=== PATIENT | female | born 1950 | race Caucasian/White ===

== ENCOUNTER 2017-05-11 11:30 | Day surgery (SDC) | payer MEDICARE, MEDICAID ==
[~2017-05-11] VITALS: Ht 170.2 cm; Wt 73.6 kg
[~2017-05-11 11:30] MED LIST: ADV50250 IH; ALBU8HFA PO; AMIT-106 PO; APIX5TAB3 PO; DILT360C31 PO; DIPH1TAB PO; FLO0.4C PO; LISI-234 PO; MULT-1141 PO; PRAV10TA38 PO; SPIIN IH; TRAZ-143 PO
[2017-05-11] MEDS ORDERED: fentaNYL/PF 50MCG/1 ML 2ML syringe ONE (11:59)
[2017-05-11] MEDS ORDERED: LIDOcaine Viscous 15ml cup ONE (12:00)
[2017-05-11] MEDS ORDERED: MIDAZolam 1mg/ml 10ml vial ONE (12:00)
[2017-05-11 12:12] VITALS: BP 147/85
[2017-05-11] MEDS ORDERED: ALBU2.5V12 NEB (12:12)
[2017-05-11] MEDS ORDERED: NITR0.4T SL (12:14)
[2017-05-11] MEDS ORDERED: FERR-97 PO (12:22)
[2017-05-11] MEDS ORDERED: LEVO50TA66 PO (12:23)
[2017-05-11] MEDS ORDERED: TIOT4MIS3 PO (12:25)
[2017-05-11 13:26] VITALS: BP 115/69
[2017-05-11 13:36] VITALS: BP 129/69
[2017-05-11 13:46] VITALS: BP 130/60
[2017-05-11 13:56] VITALS: BP 123/71
== END 2017-05-11 14:07 | disposition home or self-care (01) ==
LOC: GI LAB 11:30
PROVIDERS: ATTEND Internal Medicine Gastroenterology
DX: K57.30 Diverticulosis of large intestine without perforation or abscess without bleeding (principal); K55.20 Angiodysplasia of colon without hemorrhage; Z79.01 Long term (current) use of anticoagulants; Z79.899 Other long term (current) drug therapy; Z88.2 Allergy status to sulfonamides; Z88.6 Allergy status to analgesic agent; Z88.1 Allergy status to other antibiotic agents
CPT/HCPCS: 43239; 45380; 99153; G0500; J2250; J3010; J7030; 88305; A4620

== ENCOUNTER 2017-06-09 08:30 | Inpatient (IN) | payer MEDICARE, MEDICAID ==
[~2017-06-09] VITALS: Ht 170.2 cm; Wt 73.8 kg
[~2017-06-09 08:30] MED LIST changes: -ADV50250 IH; +ALBU2.5V12 NEB; +FERR-97 PO; +LEVO50TA66 PO; -MULT-1141 PO; +NITR0.4T SL; -SPIIN IH; +TIOT4MIS3 PO
[2017-06-25 11:21] LABS: BASOPHILS % (AUTO) 0.3 % (0-1); EOSINOPHILS # (AUTO) 0.2 X10'3 (0-0.9); EOSINOPHILS % (AUTO) 2.6 % (0-6); LYMPHOCYTES # (AUTO) 2.3 X10'3 (1.1-4.8); LYMPHOCYTES % (AUTO) 26.1 % (21-51); MEAN CORPUSCULAR VOLUME 85.3 FL (78-98); MONOCYTES # (AUTO) 0.6 X10'3 (0-0.9); MONOCYTES % (AUTO) 6.9 % (2-12); NEUTROPHILS # (AUTO) 5.6 X10'3 (1.8-7.7); NEUTROPHILS % (AUTO) 64.1 % (42-75); PRE OP HEMATOCRIT 41.1 % (35.0-45.0); PRE OP PLATELET COUNT 231 X10'3 (140-440); RED BLOOD COUNT 4.82 X10'6 (4.20-5.60)
[2017-06-25 11:25] LABS: CLARITY,URINE CLEAR (Clear); COLOR,URINE YELLOW (Yellow); GLUCOSE, URINE NEGATIVE (Neg); KETONES,URINE NEGATIVE (Neg); LEUKOCYTE ESTERASE ,URINE NEGATIVE (Neg); NITRITES, URINE NEGATIVE (Neg); OCCULT BLOOD,URINE SMALL (Neg); PROTEIN,URINE NEGATIVE (Neg); UROBILINOGEN,URINE 0.2 E.U/dL (0.2-1.0)
[2017-06-25 11:28] LABS: UA COLLECTION TYPE CLN CATCH MIDSTREAM
[2017-06-25 11:32] LABS: PRE OP PROTIME 10.5 SECONDS (9.0-12.0)
[2017-06-25 11:36] LABS: WBC,URINE 0-4 /HPF (0-4)
[2017-06-25 11:36] LABS: ALBUMIN/GLOBULIN RATIO 1.1 (1.1-1.5); ALKALINE PHOSPHATASE 102 IU/L (46-116); BLOOD UREA NITROGEN 13 MG/DL (7-18); BUN/CREATININE RATIO 9.4 (6.6-38.0); CALCIUM 10.1 MG/DL (8.5-10.1); CHLORIDE 106 MMOL/L (99-107); CREATININE 1.38 MG/DL (0.40-0.90); PRE OP ALT 40 U/L (30-65); PRE OP ANION GAP 12 (8-16); PRE OP AST 22 U/L (10-37); PRE OP BILIRUB, TOTAL 0.3 MG/DL (0.0-1.0); PRE OP GLUCOSE 92 MG/DL (70-104); PRE OP POTASSIUM 3.9 MMOL/L (3.4-5.1); PRE OP SODIUM 143 MMOL/L (135-145); TOTAL CARBON DIOXIDE 25.4 MMOL/L (24-32); TOTAL PROTEIN 7.8 G/DL (6.4-8.2); eGFR 38 ML/MIN
[2017-06-25 11:37] LABS: BACTERIA,URINE FEW /HPF (Neg); RBC,URINE 0-2 /HPF (0-2); SQUAMOUS EPITHELIAL CELL,UR FEW /LPF (FEW)
[2017-06-30] VITALS (29 sets, daily range): BP systolic 83–149; BP diastolic 45–87
[2017-06-30] MEDS ORDERED: ringers solution, lacted 1,000 ML IV SCH ×2 (05:00→07:40)
[2017-06-30] MEDS ORDERED: ceFOXitin 2 GM ADDvantage bag 100 ML IV ONE (05:30)
[2017-06-30] MEDS ORDERED: famotidine 20mg tablet PO ONE (05:30)
[2017-06-30] MEDS ORDERED: LIDOcaine 1% (10mg/ml) 2ml vial ONE ×2 (06:02→07:12)
[2017-06-30] MEDS ORDERED: propofol inj 20 ML IV ONE (07:24)
[2017-06-30] MEDS ORDERED: rocuronium 10mg/ml inj IV ONE (07:24)
[2017-06-30] MEDS ORDERED: fentaNYL/PF 50MCG/1 ML 2ML syringe ONE ×3 (07:24→09:12)
[2017-06-30] MEDS ORDERED: midazolam 2 mg/2 ml injection ONE (07:24)
[2017-06-30] MEDS ORDERED: LIDOcaine 2% (20mg/ml) 5ml vial ONE (07:24)
[2017-06-30] MEDS ORDERED: ondansetron/PF 4mg/2ml inj IV PRN (07:40)
[2017-06-30] MEDS ORDERED: meperidine/PF 50mg/ml syringe IV PRN ×2 (07:40)
[2017-06-30] MEDS ORDERED: proCHLORperazine 10 MG/2 ml inj IV PRN (07:40)
[2017-06-30] MEDS ORDERED: morphine 2 MG/ML inj. syringe IV PRN ×2 (07:40)
[2017-06-30] MEDS ORDERED: sevoflurane 250ml liquid IH ONE (07:45)
[2017-06-30] MEDS ORDERED: ePHEDrine 50MG/ML INJ. ONE (07:45)
[2017-06-30] MEDS ORDERED: dexamethasone sod phosphate 4mg/ml inj. ONE (08:20)
[2017-06-30] MEDS ORDERED: ceFAZolin 1000mg inj IR ONE (09:00)
[2017-06-30] MEDS ORDERED: BUPIVAcaine/PF 2.5 mg/ml (0.25%) 30ml vial IJ ONE (09:01)
[2017-06-30] MEDS ORDERED: neostigmine methylsulfate 1 MG/ML 10ml vial ONE (09:04)
[2017-06-30] MEDS ORDERED: glycopyrrolate 0.2mg/ml inj ONE (09:04)
[2017-06-30] MEDS ORDERED: ondansetron/PF 4mg/2ml inj ONE (09:05)
[2017-06-30] MEDS ORDERED: phenylephrine 10mg/ml inj IV ONE (09:05)
[2017-06-30] MEDS ORDERED: HYDROmorphone/NS 1 mg/ml CADD 50 ML IV SCH (09:40)
[2017-06-30] MEDS: meperidine/PF 50mg/ml syringe IV PRN ×2 (09:58→10:04)
[2017-06-30] MEDS ORDERED: CADD PCA waste documentation MC SCH (10:05)
[2017-06-30] MEDS: HYDROmorphone/NS 1 mg/ml CADD 50 ML IV SCH ×5 (10:16→23:00)
[2017-06-30] MEDS ORDERED: nitroGLYCERIN 0.4mg SUBLingual tab SL PRN (10:30)
[2017-06-30] MEDS ORDERED: diphenoxylate/atropine tablet (Lomotil) PO PRN (10:30)
[2017-06-30] MEDS ORDERED: traZODone 50mg tablet PO PRN (10:30)
[2017-06-30] MEDS ORDERED: albuterol 2.5 MG/3 ML nebule NEB PRN (10:45)
[2017-06-30 13:14] LABS: HEMATOCRIT 38.2 % (35.0-45.0); HEMOGLOBIN 13.1 g/dl (12.0-16.0); MEAN CORPUSCULAR HEMOGLOBIN 29.4 PG (27.0-31.0); MEAN CORPUSCULAR HGB CONC 34.3 % (33.0-36.5); MEAN CORPUSCULAR VOLUME 85.7 FL (78-98); MEAN PLATELET VOLUME 8.3 FL (7.4-10.4); PLATELET COUNT 237 X10'3 (140-440); RED BLOOD COUNT 4.45 X10'6 (4.20-5.60); RED CELL DISTRIBUTION WIDTH 15.1 % (11.5-14.5); WHITE BLOOD COUNT 20.6 X10'3 (4.5-11.0)
[2017-06-30] MEDS: ferrous sulfate 325mg tablet PO SCH (20:00)
[2017-06-30] MEDS: enoxaparin 30mg/0.3ml syringe SUBCUT SCH (20:00)
[2017-06-30] MEDS: apixaban 5mg tablet PO SCH (22:01)
[2017-07-01] VITALS (7 sets, daily range): BP systolic 96–133; BP diastolic 49–71
[2017-07-01] MEDS: HYDROmorphone/NS 1 mg/ml CADD 50 ML IV SCH ×8 (01:00→15:00)
[2017-07-01] MEDS: ferrous sulfate 325mg tablet PO SCH ×2 (08:00→21:16)
[2017-07-01] MEDS ORDERED: atorvastatin 10mg tablet PO SCH (08:00)
[2017-07-01] MEDS ORDERED: non-formulary drug (Albuterol Sulfate 1 VIAL) NEB SCH (08:00)
[2017-07-01] MEDS ORDERED: amitriptyline 25mg tablet PO SCH (08:00)
[2017-07-01] MEDS: lisinopril 10 MG tablet PO SCH (08:00)
[2017-07-01] MEDS: enoxaparin 30mg/0.3ml syringe SUBCUT SCH (08:00)
[2017-07-01] MEDS ORDERED: tamsulosin 0.4mg capsule PO SCH (08:00)
[2017-07-01] MEDS: HYDROchlorothiazide 12.5mg capsule PO SCH (08:00)
[2017-07-01 08:07] LABS: BASOPHILS % (AUTO) 0.1 % (0-1); EOSINOPHILS # (AUTO) 0.1 X10'3 (0-0.9); EOSINOPHILS % (AUTO) 0.8 % (0-6); HEMATOCRIT 31.4 % (35.0-45.0); HEMOGLOBIN 10.6 g/dl (12.0-16.0); LYMPHOCYTES # (AUTO) 1.2 X10'3 (1.1-4.8); MEAN CORPUSCULAR HGB CONC 33.8 % (33.0-36.5); MEAN CORPUSCULAR VOLUME 85.8 FL (78-98); MEAN PLATELET VOLUME 8.2 FL (7.4-10.4); MONOCYTES # (AUTO) 0.9 X10'3 (0-0.9); MONOCYTES % (AUTO) 6.4 % (2-12); NEUTROPHILS # (AUTO) 11.1 X10'3 (1.8-7.7); NEUTROPHILS % (AUTO) 83.7 % (42-75); PLATELET COUNT 183 X10'3 (140-440); RED BLOOD COUNT 3.67 X10'6 (4.20-5.60); RED CELL DISTRIBUTION WIDTH 16.1 % (11.5-14.5); WHITE BLOOD COUNT 13.3 X10'3 (4.5-11.0)
[2017-07-01 08:18] LABS: ALBUMIN 2.6 G/DL (3.4-5.0); ANION GAP 8 (8-16); BLOOD UREA NITROGEN 17 MG/DL (7-18); BUN/CREATININE RATIO 11.6 (6.6-38.0); CALCIUM 8.1 MG/DL (8.5-10.1); CHLORIDE 109 MMOL/L (99-107); CREATININE 1.47 MG/DL (0.40-0.90); GLUCOSE 127 MG/DL (70-104); POTASSIUM 4.9 MMOL/L (3.5-5.1); SODIUM 141 MMOL/L (135-145); eGFR 35 ML/MIN
[2017-07-01] MEDS: normal saline 1000ml 1,000 ML IV SCH ×2 (09:01→16:12)
[2017-07-01] MEDS: levoTHYROXINE 25mcg tablet PO SCH (09:03)
[2017-07-01] MEDS: diltiazem CD 120mg capsule (once-daily) PO SCH (09:04)
[2017-07-01] MEDS: apixaban 5mg tablet PO SCH ×2 (09:05→21:18)
[2017-07-01] MEDS: ipratropium/albuterol 3ml nebule IH PRN ×2 (09:08→13:09)
[2017-07-01] MEDS: HYDROcodone/acetaminophen 10/325mg tab PO PRN ×2 (15:55→21:14)
[2017-07-01] MEDS: tamsulosin 0.4mg capsule PO SCH (21:17)
[2017-07-01] MEDS: atorvastatin 10mg tablet PO SCH (21:17)
[2017-07-01] MEDS: amitriptyline 25mg tablet PO SCH (21:19)
[2017-07-02] VITALS: BP 123/64
[2017-07-02] MEDS: normal saline 1000ml 1,000 ML IV SCH (01:28)
[2017-07-02] MEDS: HYDROcodone/acetaminophen 10/325mg tab PO PRN ×5 (01:28→21:06)
[2017-07-02 07:00] VITALS: BP 129/71
[2017-07-02] MEDS: diltiazem CD 120mg capsule (once-daily) PO SCH (07:24)
[2017-07-02] MEDS: lisinopril 10 MG tablet PO SCH (07:24)
[2017-07-02] MEDS: HYDROchlorothiazide 12.5mg capsule PO SCH (07:24)
[2017-07-02] MEDS: apixaban 5mg tablet PO SCH ×2 (07:24→20:42)
[2017-07-02] MEDS: levoTHYROXINE 25mcg tablet PO SCH (07:25)
[2017-07-02] MEDS: enoxaparin 30mg/0.3ml syringe SUBCUT SCH (07:26)
[2017-07-02] MEDS: ferrous sulfate 325mg tablet PO SCH ×2 (07:26→20:42)
[2017-07-02] MEDS: ipratropium/albuterol 3ml nebule IH PRN ×3 (07:28→17:03)
[2017-07-02] MEDS ORDERED: HYDROCHLOROTHIAZIDE PO SCH (08:00)
[2017-07-02] MEDS ORDERED: LISINOPRIL PO SCH (08:00)
[2017-07-02] MEDS ORDERED: [UNRECOGNIZED DRUG - OTHER] PO SCH (08:00)
[2017-07-02 11:00] VITALS: BP 126/52
[2017-07-02 13:45] LABS: BASOPHILS % (AUTO) 0.1 % (0-1); EOSINOPHILS % (AUTO) 0 % (0-6); HEMOGLOBIN 10.4 g/dl (12.0-16.0); LYMPHOCYTES # (AUTO) 1.1 X10'3 (1.1-4.8); LYMPHOCYTES % (AUTO) 7.3 % (21-51); MEAN CORPUSCULAR HEMOGLOBIN 28.9 PG (27.0-31.0); MEAN CORPUSCULAR HGB CONC 33.5 % (33.0-36.5); MEAN CORPUSCULAR VOLUME 86.2 FL (78-98); MEAN PLATELET VOLUME 8.6 FL (7.4-10.4); MONOCYTES % (AUTO) 6.4 % (2-12); NEUTROPHILS % (AUTO) 86.2 % (42-75); PLATELET COUNT 189 X10'3 (140-440); RED BLOOD COUNT 3.59 X10'6 (4.20-5.60); WHITE BLOOD COUNT 15.1 X10'3 (4.5-11.0)
[2017-07-02 18:30] VITALS: BP 148/79
[2017-07-02] MEDS: atorvastatin 10mg tablet PO SCH (20:42)
[2017-07-02] MEDS: tamsulosin 0.4mg capsule PO SCH (20:42)
[2017-07-02] MEDS: amitriptyline 25mg tablet PO SCH (20:42)
[2017-07-03] VITALS: BP 142/74
[2017-07-03] MEDS: HYDROcodone/acetaminophen 10/325mg tab PO PRN ×3 (02:31→12:32)
[2017-07-03 02:38] LABS: HEMATOCRIT 29.6 % (35.0-45.0); HEMOGLOBIN 10.1 g/dl (12.0-16.0); MEAN CORPUSCULAR HEMOGLOBIN 29.1 PG (27.0-31.0); MEAN CORPUSCULAR HGB CONC 33.9 % (33.0-36.5); MEAN CORPUSCULAR VOLUME 85.7 FL (78-98); MEAN PLATELET VOLUME 8.3 FL (7.4-10.4); PLATELET COUNT 179 X10'3 (140-440); RED BLOOD COUNT 3.46 X10'6 (4.20-5.60); WHITE BLOOD COUNT 12.9 X10'3 (4.5-11.0)
[2017-07-03] MEDS: ipratropium/albuterol 3ml nebule IH PRN ×2 (07:43→11:26)
[2017-07-03 07:51] VITALS: BP 122/71
[2017-07-03] MEDS: HYDROchlorothiazide 12.5mg capsule PO SCH (07:56)
[2017-07-03] MEDS: diltiazem CD 120mg capsule (once-daily) PO SCH (07:56)
[2017-07-03] MEDS: lisinopril 10 MG tablet PO SCH (07:56)
[2017-07-03] MEDS: apixaban 5mg tablet PO SCH (07:56)
[2017-07-03] MEDS: levoTHYROXINE 25mcg tablet PO SCH (07:56)
[2017-07-03 12:00] VITALS: BP 154/78
[2017-07-03] MEDS: ferrous sulfate 325mg tablet PO SCH (12:31)
[2017-07-03] MEDS ORDERED: HYDR-3972 PO (14:41)
== END 2017-07-03 15:26 | disposition home health service (06) | DRG 331 ==
LOC: EDSTATUS 08:30 → PAS IN 06-30 05:21 → EDSTATUS 06-30 07:30 → SUR 3N 06-30 09:40
PROVIDERS: ADMIT Surgery; ATTEND Surgery
PROC: 0DTN4ZZ Resection of Sigmoid Colon, Percutaneous Endoscopic Approach (ICD-10-PCS; principal; 2017-06-30 07:47)
PROC: 0T788DZ Dilation of Bilateral Ureters with Intraluminal Device, Via Natural or Artificial Opening Endoscopic (ICD-10-PCS; 2017-06-30 07:47)
DX: K57.92 Diverticulitis of intestine, part unspecified, without perforation or abscess without bleeding (principal); I48.2 Chronic atrial fibrillation; J44.9 Chronic obstructive pulmonary disease, unspecified; K75.9 Inflammatory liver disease, unspecified; N18.3 Chronic kidney disease, stage 3 (moderate); I12.9 Hypertensive chronic kidney disease with stage 1 through stage 4 chronic kidney disease, or unspecified chronic kidney disease; E03.9 Hypothyroidism, unspecified; F32.9 Major depressive disorder, single episode, unspecified; E78.5 Hyperlipidemia, unspecified; G40.909 Epilepsy, unspecified, not intractable, without status epilepticus; M19.90 Unspecified osteoarthritis, unspecified site; Z79.01 Long term (current) use of anticoagulants; Z79.899 Other long term (current) drug therapy; Z90.710 Acquired absence of both cervix and uterus; Z88.6 Allergy status to analgesic agent; Z88.8 Allergy status to other drugs, medicaments and biological substances; Z87.891 Personal history of nicotine dependence; Z80.0 Family history of malignant neoplasm of digestive organs; Z80.52 Family history of malignant neoplasm of bladder; Z82.3 Family history of stroke
CPT/HCPCS: 36415; 71046; 76001; 80048; 80053; 81001; 85025; 85027; 85610; 85730; 86885; 86900; 86901; 86920; 87070; 94640; 94667; 94760; A4402; A6449; A7000; C1758; C1769; J0690; J0694; J1100; J1170; J1650; J2001; J2175; J2250; J2370; J2405; J2704; J2710; J3010; J3490; J7030; J7120

== ENCOUNTER 2017-07-11 06:31 | Inpatient (IN) | payer MEDICARE, MEDICAID ==
[~2017-07-11] VITALS: Ht 170.2 cm; Wt 84.0 kg
[~2017-07-11 06:31] MED LIST changes: +HYDR-3972 PO
[2017-07-11 07:00] LABS: BASOPHILS % (AUTO) 0.1 % (0-1); EOSINOPHILS # (AUTO) 0.3 X10'3 (0-0.9); EOSINOPHILS % (AUTO) 2.3 % (0-6); HEMATOCRIT 27.6 % (35.0-45.0); HEMOGLOBIN 9.3 g/dl (12.0-16.0); LYMPHOCYTES # (AUTO) 2.5 X10'3 (1.1-4.8); LYMPHOCYTES % (AUTO) 17.2 % (21-51); MEAN CORPUSCULAR HEMOGLOBIN 28.7 PG (27.0-31.0); MEAN CORPUSCULAR HGB CONC 33.8 % (33.0-36.5); MEAN PLATELET VOLUME 7.3 FL (7.4-10.4); MONOCYTES # (AUTO) 1.1 X10'3 (0-0.9); MONOCYTES % (AUTO) 7.3 % (2-12); NEUTROPHILS # (AUTO) 10.7 X10'3 (1.8-7.7); NEUTROPHILS % (AUTO) 73.1 % (42-75); PLATELET COUNT 483 X10'3 (140-440); RED BLOOD COUNT 3.25 X10'6 (4.20-5.60); RED CELL DISTRIBUTION WIDTH 15.7 % (11.5-14.5); WHITE BLOOD COUNT 14.7 X10'3 (4.5-11.0)
[2017-07-11 07:14] LABS: ALANINE AMINOTRANSFERASE 42 U/L (12-78); ALBUMIN 2.2 G/DL (3.4-5.0); ALBUMIN/GLOBULIN RATIO 0.5 (1.1-1.5); ALKALINE PHOSPHATASE 108 IU/L (46-116); ANION GAP 10 (8-16); ASPARTATE AMINO TRANSFERASE 27 U/L (10-37); BILIRUBIN,TOTAL 0.4 MG/DL (0.1-1.0); BLOOD UREA NITROGEN 21 MG/DL (7-18); BUN/CREATININE RATIO 12.9 (6.6-38.0); CALCIUM 9.4 MG/DL (8.5-10.1); CHLORIDE 103 MMOL/L (99-107); CREATININE 1.63 MG/DL (0.40-0.90); GLUCOSE 113 MG/DL (70-104); SODIUM 145 MMOL/L (135-145); TOTAL CARBON DIOXIDE 32.5 MMOL/L (24-32); TOTAL PROTEIN 6.4 G/DL (6.4-8.2); eGFR 31 ML/MIN
[2017-07-11 07:25] LABS: ANISOCYTOSIS 1+; INR 1.1 INR; LARGE PLATELETS FEW; MICROCYTOSIS 1+; PARTIAL THROMBOPLASTIN TIME 32 SECONDS (22-32); PLATELET ESTIMATE INCREASED; PROTHROMBIN TIME 11.6 SECONDS (9.0-12.0)
[2017-07-11 07:26] LABS: POLYCHROMASIA 1+; TARGET CELLS FEW
[2017-07-11] MEDS ORDERED: normal saline 1000ML IV soln IVB ONE ×2 (07:40→09:35)
[2017-07-11 09:05] LABS: CLARITY,URINE CLEAR (Clear); COLOR,URINE YELLOW (Yellow); GLUCOSE, URINE NEGATIVE (Neg); KETONES,URINE NEGATIVE (Neg); LEUKOCYTE ESTERASE ,URINE NEGATIVE (Neg); NITRITES, URINE NEGATIVE (Neg); OCCULT BLOOD,URINE NEGATIVE (Neg); PROTEIN,URINE NEGATIVE (Neg); UROBILINOGEN,URINE 0.2 E.U/dL (0.2-1.0)
[2017-07-11 09:11] LABS: UA COLLECTION TYPE STRAIGHT CATH
[2017-07-11] MEDS: potassium 10mEq/100ml NS w/LIDOcaine (10mg/bag) IV SCH ×2 (09:18→10:38)
[2017-07-11] MEDS ORDERED: piperacillin/tazo 4.5gm/100ml 100 ML IV ONE ×3 (10:18→10:25)
[2017-07-11] MEDS ORDERED: potassium Cl 40MEQ/NS 500ml 500 ML IV PRN ×2 (11:10)
[2017-07-11] MEDS ORDERED: mag hydrox/Alum hydrox/simeth 30ml oral suspension PO PRN (11:10)
[2017-07-11] MEDS ORDERED: potassium Cl 20 mEq SR tablet PO PRN (11:10)
[2017-07-11] MEDS ORDERED: magnesium hydroxide 30ml (MOM) UD suspension PO PRN (11:10)
[2017-07-11] MEDS ORDERED: HYDROmorphone inj. 0.5 MG/0.5 ML DISP.SYRIN IV PRN (11:10)
[2017-07-11] MEDS ORDERED: acetaminophen 325mg tablet PO PRN ×2 (11:10)
[2017-07-11] MEDS ORDERED: non-formulary drug (albuterol inhaler (Pro-Air Inhaler) 2 PUFFS) PO PRN (11:20)
[2017-07-11] MEDS ORDERED: ipratropium/albuterol 3ml nebule IH PRN (11:35)
[2017-07-11] MEDS: HYDROcodone/acetaminophen 5mg/325mg tablet PO PRN (12:06)
[2017-07-11] MEDS: normal saline 1000ml 1,000 ML IV SCH (13:15)
[2017-07-11] MEDS: HYDROcodone/acetaminophen 10/325mg tab PO PRN (15:23)
[2017-07-11] MEDS: K and/or MAG REPLACEMENT MC SCH (16:51)
[2017-07-11] MEDS: metroNIDAZOLE-Flagyl 500mg/NS 100 ML IV SCH (16:55)
[2017-07-11] MEDS: piperacillin/tazo 4.5gm/100ml 100 ML IV SCH (17:47)
[2017-07-11 18:00] VITALS: BP 119/49
[2017-07-11 19:32] LABS: MAGNESIUM 1.1 MG/DL (1.5-2.4); POTASSIUM 3.8 MMOL/L (3.5-5.1)
[2017-07-11] MEDS ORDERED: temazepam 15mg capsule PO PRN (21:00)
[2017-07-11] MEDS: ferrous sulfate 325mg tablet PO SCH (21:49)
[2017-07-11] MEDS: amitriptyline 25mg tablet PO SCH (21:50)
[2017-07-11 23:00] VITALS: BP 103/57
[2017-07-12] VITALS (12 sets, daily range): BP systolic 97–131; BP diastolic 49–69
[2017-07-12] MEDS: metroNIDAZOLE-Flagyl 500mg/NS 100 ML IV SCH ×3 (00:39→16:10)
[2017-07-12] MEDS: normal saline 1000ml 1,000 ML IV SCH ×3 (00:39→17:07)
[2017-07-12] MEDS: piperacillin/tazo 4.5gm/100ml 100 ML IV SCH ×2 (01:52→08:02)
[2017-07-12] MEDS: HYDROcodone/acetaminophen 10/325mg tab PO PRN ×3 (01:58→16:02)
[2017-07-12 02:13] LABS: BASOPHILS % (AUTO) 0.3 % (0-1); EOSINOPHILS # (AUTO) 0.3 X10'3 (0-0.9); EOSINOPHILS % (AUTO) 2.7 % (0-6); LYMPHOCYTES # (AUTO) 2.2 X10'3 (1.1-4.8); LYMPHOCYTES % (AUTO) 19.9 % (21-51); MEAN CORPUSCULAR HEMOGLOBIN 28.9 PG (27.0-31.0); MEAN CORPUSCULAR HGB CONC 33.2 % (33.0-36.5); MEAN PLATELET VOLUME 7.7 FL (7.4-10.4); MONOCYTES # (AUTO) 0.7 X10'3 (0-0.9); MONOCYTES % (AUTO) 6.8 % (2-12); NEUTROPHILS # (AUTO) 7.6 X10'3 (1.8-7.7); NEUTROPHILS % (AUTO) 70.3 % (42-75); PLATELET COUNT 381 X10'3 (140-440); RED BLOOD COUNT 2.23 X10'6 (4.20-5.60); RED CELL DISTRIBUTION WIDTH 15.8 % (11.5-14.5); WHITE BLOOD COUNT 10.8 X10'3 (4.5-11.0)
[2017-07-12 02:21] LABS: HEMATOCRIT 19.4 % (35.0-45.0); HEMOGLOBIN 6.4 g/dl (12.0-16.0)
[2017-07-12 06:50] LABS: BASOPHILS % (AUTO) 0.4 % (0-1); EOSINOPHILS # (AUTO) 0.2 X10'3 (0-0.9); EOSINOPHILS % (AUTO) 1.9 % (0-6); HEMOGLOBIN 7.8 g/dl (12.0-16.0); LYMPHOCYTES # (AUTO) 1.8 X10'3 (1.1-4.8); LYMPHOCYTES % (AUTO) 19.1 % (21-51); MEAN CORPUSCULAR HEMOGLOBIN 29.5 PG (27.0-31.0); MEAN CORPUSCULAR VOLUME 86.8 FL (78-98); MEAN PLATELET VOLUME 7.4 FL (7.4-10.4); MONOCYTES # (AUTO) 0.8 X10'3 (0-0.9); MONOCYTES % (AUTO) 8.2 % (2-12); NEUTROPHILS # (AUTO) 6.5 X10'3 (1.8-7.7); NEUTROPHILS % (AUTO) 70.4 % (42-75); PLATELET COUNT 355 X10'3 (140-440); RED BLOOD COUNT 2.65 X10'6 (4.20-5.60); RED CELL DISTRIBUTION WIDTH 15.3 % (11.5-14.5); WHITE BLOOD COUNT 9.2 X10'3 (4.5-11.0)
[2017-07-12 07:03] LABS: ALBUMIN 1.8 G/DL (3.4-5.0); ANION GAP 11 (8-16); BLOOD UREA NITROGEN 17 MG/DL (7-18); BUN/CREATININE RATIO 10.9 (6.6-38.0); CALCIUM 7.8 MG/DL (8.5-10.1); CHLORIDE 112 MMOL/L (99-107); CREATININE 1.56 MG/DL (0.40-0.90); GLUCOSE 88 MG/DL (70-104); POTASSIUM 3.7 MMOL/L (3.5-5.1); SODIUM 149 MMOL/L (135-145); TOTAL CARBON DIOXIDE 25.7 MMOL/L (24-32); eGFR 33 ML/MIN
[2017-07-12] MEDS: K and/or MAG REPLACEMENT MC SCH (08:00)
[2017-07-12] MEDS ORDERED: non-formulary drug (Tiotropium Br/Olodaterol HCl (Stiolto Respimat Inhal Spray) 2 PUFFS) PO SCH (08:00)
[2017-07-12] MEDS: ferrous sulfate 325mg tablet PO SCH ×2 (08:00→21:39)
[2017-07-12] MEDS: levoTHYROXINE 25mcg tablet PO SCH (08:02)
[2017-07-12] MEDS: atorvastatin 10mg tablet PO SCH (08:02)
[2017-07-12 08:46] LABS: MAGNESIUM 1.2 MG/DL (1.5-2.4)
[2017-07-12] MEDS ORDERED: magnesium 4gm in 100ml NS 100 ML IV PRN (09:20)
[2017-07-12] MEDS ORDERED: magnesium 2GM in 50ml NS 50 ML IV PRN (09:20)
[2017-07-12] MEDS: magnesium Cl slow-release 64mg tablet PO PRN (09:23)
[2017-07-12 11:54] LABS: HEMOGLOBIN 8.9 g/dl (12.0-16.0); MEAN CORPUSCULAR HEMOGLOBIN 29.1 PG (27.0-31.0); MEAN CORPUSCULAR HGB CONC 34.2 % (33.0-36.5); MEAN CORPUSCULAR VOLUME 84.9 FL (78-98); MEAN PLATELET VOLUME 7.3 FL (7.4-10.4); PLATELET COUNT 322 X10'3 (140-440); RED BLOOD COUNT 3.07 X10'6 (4.20-5.60); RED CELL DISTRIBUTION WIDTH 15.1 % (11.5-14.5); WHITE BLOOD COUNT 9.8 X10'3 (4.5-11.0)
[2017-07-12 12:30] LABS: C DIFF ANTIGEN NEGATIVE (NEGATIVE); C DIFF SPECIMEN=DIARRHEA? ACCEPTABLE; C DIFFICILE TOXINS A&B NEGATIVE (Neg)
[2017-07-12] MEDS: ondansetron/PF 4mg/2ml inj IV PRN ×2 (16:07→22:16)
[2017-07-12] MEDS: amitriptyline 25mg tablet PO SCH (21:39)
[2017-07-12] MEDS: lactobacillus rhamnosus 10,000 MMU CELLS/CAPSULE PO SCH (21:39)
[2017-07-12] MEDS: HYDROcodone/acetaminophen 5mg/325mg tablet PO PRN (21:41)
[2017-07-12 22:18] LABS: HEMATOCRIT 27.5 % (35.0-45.0); HEMOGLOBIN 9.2 g/dl (12.0-16.0); MEAN CORPUSCULAR HEMOGLOBIN 28.9 PG (27.0-31.0); MEAN CORPUSCULAR HGB CONC 33.4 % (33.0-36.5); MEAN CORPUSCULAR VOLUME 86.5 FL (78-98); MEAN PLATELET VOLUME 7.2 FL (7.4-10.4); PLATELET COUNT 351 X10'3 (140-440); RED BLOOD COUNT 3.18 X10'6 (4.20-5.60); RED CELL DISTRIBUTION WIDTH 15.2 % (11.5-14.5); WHITE BLOOD COUNT 10.3 X10'3 (4.5-11.0)
[2017-07-13] MEDS: metroNIDAZOLE-Flagyl 500mg/NS 100 ML IV SCH ×2 (01:49→07:46)
[2017-07-13] MEDS: HYDROcodone/acetaminophen 5mg/325mg tablet PO PRN (01:50)
[2017-07-13 02:00] VITALS: BP 127/67
[2017-07-13] MEDS: normal saline 1000ml 1,000 ML IV SCH ×3 (03:32→16:59)
[2017-07-13 05:37] LABS: BASOPHILS % (AUTO) 0.3 % (0-1); EOSINOPHILS # (AUTO) 0.2 X10'3 (0-0.9); EOSINOPHILS % (AUTO) 1.6 % (0-6); HEMATOCRIT 26.8 % (35.0-45.0); HEMOGLOBIN 8.9 g/dl (12.0-16.0); LYMPHOCYTES # (AUTO) 1.6 X10'3 (1.1-4.8); LYMPHOCYTES % (AUTO) 15.3 % (21-51); MEAN CORPUSCULAR HEMOGLOBIN 28.7 PG (27.0-31.0); MEAN CORPUSCULAR HGB CONC 33.3 % (33.0-36.5); MEAN CORPUSCULAR VOLUME 86.3 FL (78-98); MEAN PLATELET VOLUME 7.5 FL (7.4-10.4); MONOCYTES # (AUTO) 0.8 X10'3 (0-0.9); MONOCYTES % (AUTO) 7.5 % (2-12); NEUTROPHILS # (AUTO) 7.7 X10'3 (1.8-7.7); NEUTROPHILS % (AUTO) 75.3 % (42-75); PLATELET COUNT 374 X10'3 (140-440); RED BLOOD COUNT 3.11 X10'6 (4.20-5.60); WHITE BLOOD COUNT 10.2 X10'3 (4.5-11.0)
[2017-07-13 05:56] LABS: ALBUMIN 1.9 G/DL (3.4-5.0); ANION GAP 13 (8-16); BLOOD UREA NITROGEN 13 MG/DL (7-18); BUN/CREATININE RATIO 9.6 (6.6-38.0); CALCIUM 7.7 MG/DL (8.5-10.1); CHLORIDE 111 MMOL/L (99-107); CREATININE 1.36 MG/DL (0.40-0.90); GLUCOSE 82 MG/DL (70-104); POTASSIUM 3.1 MMOL/L (3.5-5.1); SODIUM 148 MMOL/L (135-145); TOTAL CARBON DIOXIDE 24.5 MMOL/L (24-32); eGFR 39 ML/MIN
[2017-07-13 07:00] VITALS: BP 117/58
[2017-07-13] MEDS: ondansetron/PF 4mg/2ml inj IV PRN ×2 (07:42→17:00)
[2017-07-13] MEDS: HYDROcodone/acetaminophen 10/325mg tab PO PRN ×4 (07:42→23:28)
[2017-07-13] MEDS: potassium Cl 20 mEq SR tablet PO PRN ×3 (07:45→23:16)
[2017-07-13] MEDS: levoTHYROXINE 25mcg tablet PO SCH (07:45)
[2017-07-13] MEDS: magnesium Cl slow-release 64mg tablet PO PRN ×2 (07:45→20:03)
[2017-07-13] MEDS: lactobacillus rhamnosus 10,000 MMU CELLS/CAPSULE PO SCH ×2 (07:45→20:03)
[2017-07-13] MEDS: atorvastatin 10mg tablet PO SCH (07:45)
[2017-07-13] MEDS: CefTRIAXone 2gm/NS 100ml IVPB 100 ML IV SCH (07:46)
[2017-07-13] MEDS: K and/or MAG REPLACEMENT MC SCH (07:46)
[2017-07-13] MEDS: ferrous sulfate 325mg tablet PO SCH ×3 (08:00→23:16)
[2017-07-13] MEDS ORDERED: magnesium 2GM in 50ml NS 50 ML IV ONE (10:50)
[2017-07-13 11:00] VITALS: BP 125/69
[2017-07-13] MEDS ORDERED: ferrous sulfate 325mg tablet PO SCH (13:10)
[2017-07-13 15:00] VITALS: BP 136/72
[2017-07-13] MEDS: metroNIDAZOLE 500mg tablet PO SCH ×2 (16:59→23:16)
[2017-07-13 19:00] VITALS: BP 132/66
[2017-07-13] MEDS: amitriptyline 25mg tablet PO SCH (20:03)
[2017-07-13 23:00] VITALS: BP 131/74
[2017-07-13] MEDS: diphenoxylate/atropine tablet (Lomotil) PO PRN (23:29)
[2017-07-13] MEDS ORDERED: pantoprazole 40 MG vial IV ONE (23:40)
[2017-07-14] MEDS ORDERED: ferrous sulfate 325mg tablet PO SCH
[2017-07-14 03:00] VITALS: BP 114/60
[2017-07-14 06:00] VITALS: BP 126/74
[2017-07-14 06:14] LABS: BASOPHILS % (AUTO) 0.5 % (0-1); EOSINOPHILS # (AUTO) 0.2 X10'3 (0-0.9); EOSINOPHILS % (AUTO) 2.6 % (0-6); HEMATOCRIT 26.7 % (35.0-45.0); LYMPHOCYTES # (AUTO) 1.7 X10'3 (1.1-4.8); LYMPHOCYTES % (AUTO) 21.6 % (21-51); MEAN CORPUSCULAR HEMOGLOBIN 28.9 PG (27.0-31.0); MEAN CORPUSCULAR HGB CONC 33.7 % (33.0-36.5); MEAN CORPUSCULAR VOLUME 85.7 FL (78-98); MEAN PLATELET VOLUME 7.3 FL (7.4-10.4); MONOCYTES # (AUTO) 0.7 X10'3 (0-0.9); MONOCYTES % (AUTO) 9.3 % (2-12); NEUTROPHILS # (AUTO) 5.2 X10'3 (1.8-7.7); PLATELET COUNT 380 X10'3 (140-440); RED BLOOD COUNT 3.12 X10'6 (4.20-5.60); RED CELL DISTRIBUTION WIDTH 15.4 % (11.5-14.5); WHITE BLOOD COUNT 7.8 X10'3 (4.5-11.0)
[2017-07-14 06:29] LABS: ALBUMIN 1.8 G/DL (3.4-5.0); ANION GAP 10 (8-16); BLOOD UREA NITROGEN 7 MG/DL (7-18); BUN/CREATININE RATIO 5.8 (6.6-38.0); CALCIUM 7.8 MG/DL (8.5-10.1); CHLORIDE 113 MMOL/L (99-107); CREATININE 1.21 MG/DL (0.40-0.90); GLUCOSE 88 MG/DL (70-104); MAGNESIUM 1.2 MG/DL (1.5-2.4); POTASSIUM 3.9 MMOL/L (3.5-5.1); SODIUM 147 MMOL/L (135-145); TOTAL CARBON DIOXIDE 24.3 MMOL/L (24-32); eGFR 44 ML/MIN
[2017-07-14] MEDS: K and/or MAG REPLACEMENT MC SCH (08:00)
[2017-07-14] MEDS: diltiazem SR 60mg capsule (twice daily) PO SCH ×2 (08:51→19:23)
[2017-07-14] MEDS: atorvastatin 10mg tablet PO SCH (08:51)
[2017-07-14] MEDS: metroNIDAZOLE 500mg tablet PO SCH ×3 (08:52→23:52)
[2017-07-14] MEDS: lactobacillus rhamnosus 10,000 MMU CELLS/CAPSULE PO SCH ×2 (08:52→19:24)
[2017-07-14] MEDS: levoTHYROXINE 25mcg tablet PO SCH (08:57)
[2017-07-14] MEDS: diphenoxylate/atropine tablet (Lomotil) PO PRN ×3 (08:57→23:52)
[2017-07-14] MEDS: CefTRIAXone 2gm/NS 100ml IVPB 100 ML IV SCH (08:58)
[2017-07-14] MEDS: HYDROcodone/acetaminophen 5mg/325mg tablet PO PRN ×2 (10:05→18:01)
[2017-07-14 11:00] VITALS: BP 112/61
[2017-07-14] MEDS ORDERED: magnesium 2GM in 50ml NS 50 ML IV ONE (12:00)
[2017-07-14] MEDS: ferrous sulfate 325mg tablet PO SCH ×2 (12:34→23:52)
[2017-07-14 14:41] LABS: PHOSPHORUS 2.2 MG/DL (2.3-4.5)
[2017-07-14 15:00] VITALS: BP 112/54
[2017-07-14 19:00] VITALS: BP 128/62
[2017-07-14] MEDS: magnesium Cl slow-release 64mg tablet PO PRN (19:24)
[2017-07-14] MEDS: amitriptyline 25mg tablet PO SCH (22:05)
[2017-07-14] MEDS: HYDROcodone/acetaminophen 10/325mg tab PO PRN (22:05)
[2017-07-14 23:00] VITALS: BP 104/51
[2017-07-15 03:00] VITALS: BP 98/62
[2017-07-15 05:32] LABS: BASOPHILS % (AUTO) 0.4 % (0-1); EOSINOPHILS # (AUTO) 0.2 X10'3 (0-0.9); HEMATOCRIT 27.7 % (35.0-45.0); HEMOGLOBIN 9.3 g/dl (12.0-16.0); LYMPHOCYTES # (AUTO) 1.5 X10'3 (1.1-4.8); LYMPHOCYTES % (AUTO) 18.2 % (21-51); MEAN CORPUSCULAR HEMOGLOBIN 28.9 PG (27.0-31.0); MEAN CORPUSCULAR HGB CONC 33.5 % (33.0-36.5); MEAN CORPUSCULAR VOLUME 86.3 FL (78-98); MEAN PLATELET VOLUME 7.3 FL (7.4-10.4); MONOCYTES # (AUTO) 0.7 X10'3 (0-0.9); MONOCYTES % (AUTO) 8.1 % (2-12); NEUTROPHILS # (AUTO) 5.7 X10'3 (1.8-7.7); NEUTROPHILS % (AUTO) 70.3 % (42-75); PLATELET COUNT 389 X10'3 (140-440); RED BLOOD COUNT 3.21 X10'6 (4.20-5.60); RED CELL DISTRIBUTION WIDTH 15.1 % (11.5-14.5); WHITE BLOOD COUNT 8.1 X10'3 (4.5-11.0)
[2017-07-15 05:41] LABS: ALBUMIN 1.9 G/DL (3.4-5.0); ANION GAP 11 (8-16); BLOOD UREA NITROGEN 5 MG/DL (7-18); BUN/CREATININE RATIO 4.8 (6.6-38.0); CHLORIDE 110 MMOL/L (99-107); CREATININE 1.04 MG/DL (0.40-0.90); GLUCOSE 105 MG/DL (70-104); MAGNESIUM 1.4 MG/DL (1.5-2.4); POTASSIUM 3.3 MMOL/L (3.5-5.1); SODIUM 146 MMOL/L (135-145); eGFR 53 ML/MIN
[2017-07-15 06:00] VITALS: BP 126/66
[2017-07-15] MEDS ORDERED: potassium Cl 40MEQ/NS 500ml 500 ML IV PRN ×4 (07:15→10:20)
[2017-07-15] MEDS ORDERED: potassium Cl 20 mEq SR tablet PO PRN ×3 (07:15→10:20)
[2017-07-15] MEDS: diphenoxylate/atropine tablet (Lomotil) PO PRN ×2 (07:23→16:36)
[2017-07-15] MEDS: HYDROcodone/acetaminophen 5mg/325mg tablet PO PRN ×3 (07:24→21:03)
[2017-07-15] MEDS: diltiazem SR 60mg capsule (twice daily) PO SCH ×2 (07:24→21:02)
[2017-07-15] MEDS: lactobacillus rhamnosus 10,000 MMU CELLS/CAPSULE PO SCH ×2 (07:25→21:02)
[2017-07-15] MEDS: levoTHYROXINE 25mcg tablet PO SCH (07:25)
[2017-07-15] MEDS: metroNIDAZOLE 500mg tablet PO SCH ×3 (07:26→23:10)
[2017-07-15] MEDS: CefTRIAXone 2gm/NS 100ml IVPB 100 ML IV SCH (07:26)
[2017-07-15] MEDS: atorvastatin 10mg tablet PO SCH (07:26)
[2017-07-15] MEDS: potassium Cl 20 mEq SR tablet PO PRN ×3 (07:27→21:03)
[2017-07-15] MEDS: K and/or MAG REPLACEMENT MC SCH (07:31)
[2017-07-15] MEDS: magnesium Cl slow-release 64mg tablet PO PRN (07:39)
[2017-07-15] MEDS ORDERED: magnesium 2GM in 50ml NS 50 ML IV PRN (10:20)
[2017-07-15] MEDS ORDERED: magnesium Cl slow-release 64mg tablet PO PRN (10:20)
[2017-07-15] MEDS ORDERED: magnesium 4gm in 100ml NS 100 ML IV PRN (10:20)
[2017-07-15 11:00] VITALS: BP 118/70
[2017-07-15] MEDS: ferrous sulfate 325mg tablet PO SCH ×2 (13:05→23:06)
[2017-07-15 15:00] VITALS: BP 124/61
[2017-07-15] MEDS: ondansetron/PF 4mg/2ml inj IV PRN (17:52)
[2017-07-15 19:00] VITALS: BP 120/66
[2017-07-15] MEDS: amitriptyline 25mg tablet PO SCH (21:03)
[2017-07-15 23:00] VITALS: BP 116/66
[2017-07-16 03:00] VITALS: BP 106/54
[2017-07-16 06:00] VITALS: BP 109/57
[2017-07-16 06:29] LABS: BASOPHILS % (AUTO) 0.4 % (0-1); EOSINOPHILS # (AUTO) 0.2 X10'3 (0-0.9); EOSINOPHILS % (AUTO) 2.8 % (0-6); HEMATOCRIT 28.9 % (35.0-45.0); HEMOGLOBIN 9.5 g/dl (12.0-16.0); LYMPHOCYTES # (AUTO) 1.6 X10'3 (1.1-4.8); LYMPHOCYTES % (AUTO) 18.8 % (21-51); MEAN CORPUSCULAR HEMOGLOBIN 28.6 PG (27.0-31.0); MEAN CORPUSCULAR HGB CONC 32.8 % (33.0-36.5); MEAN CORPUSCULAR VOLUME 87.2 FL (78-98); MEAN PLATELET VOLUME 7.3 FL (7.4-10.4); MONOCYTES # (AUTO) 0.7 X10'3 (0-0.9); MONOCYTES % (AUTO) 8.1 % (2-12); NEUTROPHILS # (AUTO) 5.8 X10'3 (1.8-7.7); NEUTROPHILS % (AUTO) 69.9 % (42-75); PLATELET COUNT 440 X10'3 (140-440); RED BLOOD COUNT 3.31 X10'6 (4.20-5.60); RED CELL DISTRIBUTION WIDTH 15.8 % (11.5-14.5); WHITE BLOOD COUNT 8.3 X10'3 (4.5-11.0)
[2017-07-16 06:53] LABS: ANION GAP 8 (8-16); BLOOD UREA NITROGEN 5 MG/DL (7-18); BUN/CREATININE RATIO 4.3 (6.6-38.0); CALCIUM 8.4 MG/DL (8.5-10.1); CHLORIDE 110 MMOL/L (99-107); CREATININE 1.16 MG/DL (0.40-0.90); GLUCOSE 111 MG/DL (70-104); MAGNESIUM 2.3 MG/DL (1.5-2.4); POTASSIUM 3.7 MMOL/L (3.5-5.1); SODIUM 144 MMOL/L (135-145); eGFR 47 ML/MIN
[2017-07-16] MEDS: atorvastatin 10mg tablet PO SCH (07:47)
[2017-07-16] MEDS: CefTRIAXone 2gm/NS 100ml IVPB 100 ML IV SCH (07:47)
[2017-07-16] MEDS: metroNIDAZOLE 500mg tablet PO SCH ×2 (07:47→16:44)
[2017-07-16] MEDS: lactobacillus rhamnosus 10,000 MMU CELLS/CAPSULE PO SCH ×2 (07:47→20:54)
[2017-07-16] MEDS: diltiazem SR 60mg capsule (twice daily) PO SCH ×2 (07:48→20:55)
[2017-07-16] MEDS: levoTHYROXINE 25mcg tablet PO SCH (07:48)
[2017-07-16] MEDS: K and/or MAG REPLACEMENT MC SCH (08:00)
[2017-07-16] MEDS: HYDROcodone/acetaminophen 5mg/325mg tablet PO PRN ×2 (08:02→14:28)
[2017-07-16 11:00] VITALS: BP 110/63
[2017-07-16] MEDS: ferrous sulfate 325mg tablet PO SCH (12:16)
[2017-07-16 16:00] VITALS: BP 113/56
[2017-07-16 19:00] VITALS: BP 130/60
[2017-07-16] MEDS: HYDROcodone/acetaminophen 10/325mg tab PO PRN (20:54)
[2017-07-16] MEDS: amitriptyline 25mg tablet PO SCH (20:55)
[2017-07-16 23:00] VITALS: BP 103/51
[2017-07-17] MEDS: ferrous sulfate 325mg tablet PO SCH ×2 (00:06→12:52)
[2017-07-17] MEDS: metroNIDAZOLE 500mg tablet PO SCH ×2 (00:06→07:56)
[2017-07-17 03:00] VITALS: BP 100/52
[2017-07-17 06:04] LABS: MAGNESIUM 1.5 MG/DL (1.5-2.4); POTASSIUM 3.7 MMOL/L (3.5-5.1)
[2017-07-17] MEDS: atorvastatin 10mg tablet PO SCH (07:35)
[2017-07-17] MEDS: levoTHYROXINE 25mcg tablet PO SCH (07:36)
[2017-07-17] MEDS: lactobacillus rhamnosus 10,000 MMU CELLS/CAPSULE PO SCH (07:36)
[2017-07-17] MEDS: diltiazem SR 60mg capsule (twice daily) PO SCH (07:37)
[2017-07-17] MEDS: CefTRIAXone 2gm/NS 100ml IVPB 100 ML IV SCH (07:38)
[2017-07-17] MEDS: K and/or MAG REPLACEMENT MC SCH (07:51)
[2017-07-17] MEDS: HYDROcodone/acetaminophen 5mg/325mg tablet PO PRN (11:06)
[2017-07-17] MEDS ORDERED: AMOX-580 PO (12:31)
[2017-07-17] MEDS ORDERED: METR500T4 PO (12:31)
== END 2017-07-17 13:00 | disposition home health service (06) | DRG 919 ==
LOC: ER 06:31 → ED HOLD 11:07 → EDBEDREQ 18:32 → PCU 3S 19:54
PROVIDERS: ADMIT Emergency Medicine; ATTEND Legal Medicine
PROC: 30233N1 Transfusion of Nonautologous Red Blood Cells into Peripheral Vein, Percutaneous Approach (ICD-10-PCS; principal; 2017-07-12)
DX: K91.840 Postprocedural hemorrhage of a digestive system organ or structure following a digestive system procedure (principal); A41.9 Sepsis, unspecified organism; R65.20 Severe sepsis without septic shock; I95.9 Hypotension, unspecified; E87.0 Hyperosmolality and hypernatremia; E44.1 Mild protein-calorie malnutrition; I48.91 Unspecified atrial fibrillation; D62 Acute posthemorrhagic anemia; N18.3 Chronic kidney disease, stage 3 (moderate); J44.9 Chronic obstructive pulmonary disease, unspecified; E86.0 Dehydration; E03.9 Hypothyroidism, unspecified; I12.9 Hypertensive chronic kidney disease with stage 1 through stage 4 chronic kidney disease, or unspecified chronic kidney disease; E87.6 Hypokalemia; I34.0 Nonrheumatic mitral (valve) insufficiency; Z87.891 Personal history of nicotine dependence; Z90.710 Acquired absence of both cervix and uterus; Z90.49 Acquired absence of other specified parts of digestive tract; Z88.1 Allergy status to other antibiotic agents; Z88.6 Allergy status to analgesic agent; Z68.29 Body mass index [BMI] 29.0-29.9, adult; Z88.2 Allergy status to sulfonamides; Z79.899 Other long term (current) drug therapy; Y83.8 Other surgical procedures as the cause of abnormal reaction of the patient, or of later complication, without mention of misadventure at the time of the procedure; Y92.89 Other specified places as the place of occurrence of the external cause
CPT/HCPCS: 36415; 71045; 74176; 80048; 80053; 81003; 83735; 84100; 84132; 84443; 85025; 85027; 85610; 85730; 86885; 86900; 86901; 86920; 87045; 87046; 87070; 87324; 87449; 93306; 94760; 96361; 96365; 97110; 97116; 97162; 97530; 99285; A6250; C1758; C9113; J0696; J2405; J2543; J3475; J3490; J7030; P9016

== ENCOUNTER 2018-01-19 14:31 | Day surgery (SDC) | payer MEDICARE, MEDICAID ==
[~2018-01-19] VITALS: Ht 170.2 cm; Wt 71.7 kg
[2018-01-19] VITALS (7 sets, daily range): BP systolic 114–128; BP diastolic 62–78
[~2018-01-19 14:31] MED LIST changes: +METR500T4 PO; -TRAZ-143 PO; +TRAZ-218 PO
[2018-01-19] MEDS ORDERED: normal saline 1000ml 1,000 ML IV SCH (15:00)
[2018-01-19] MEDS ORDERED: diphenhydrAMINE 25mg capsule PO PRN (15:00)
[2018-01-19] MEDS ORDERED: LORazepam 0.5 MG tablet PO PRN (15:00)
[2018-01-19] MEDS ORDERED: DIPH1TAB PO (15:27)
[2018-01-19] MEDS ORDERED: OXYGEN (15:27)
[2018-01-19] MEDS ORDERED: MULT-933 PO (15:27)
[2018-01-19] MEDS ORDERED: midazolam 2 mg/2 ml injection ONE ×2 (16:23→18:04)
[2018-01-19] MEDS ORDERED: fentaNYL/PF 50MCG/1 ML 2ML syringe ONE (16:24)
[2018-01-19] MEDS ORDERED: LIDOcaine 1% 30ml preserv. free vial ONE (16:24)
[2018-01-19] MEDS ORDERED: iohexol 350MG/ML 100ml bottle IV ONE (16:24)
== END 2018-01-19 20:30 | disposition home or self-care (01) ==
LOC: SSTAY O 14:31
PROVIDERS: ATTEND Internal Medicine Interventional Cardiology
DX: I25.118 Atherosclerotic heart disease of native coronary artery with other forms of angina pectoris (principal); I48.0 Paroxysmal atrial fibrillation; I12.9 Hypertensive chronic kidney disease with stage 1 through stage 4 chronic kidney disease, or unspecified chronic kidney disease; N18.3 Chronic kidney disease, stage 3 (moderate); E78.5 Hyperlipidemia, unspecified; J43.9 Emphysema, unspecified; E89.0 Postprocedural hypothyroidism; F41.8 Other specified anxiety disorders; F32.9 Major depressive disorder, single episode, unspecified; Z86.69 Personal history of other diseases of the nervous system and sense organs; Z87.891 Personal history of nicotine dependence; Z90.49 Acquired absence of other specified parts of digestive tract; Z99.81 Dependence on supplemental oxygen; Z90.89 Acquired absence of other organs; Z90.710 Acquired absence of both cervix and uterus; Z88.1 Allergy status to other antibiotic agents; Z88.6 Allergy status to analgesic agent; Z88.2 Allergy status to sulfonamides; Z79.891 Long term (current) use of opiate analgesic; Z79.01 Long term (current) use of anticoagulants; Z98.890 Other specified postprocedural states; Z79.899 Other long term (current) drug therapy; Z88.8 Allergy status to other drugs, medicaments and biological substances
CPT/HCPCS: 93005; 93458; 99152; 99153; A6257; C1769; J1644; J2250; J3010; J3490; J7030; Q0163; Q9967; A4620

== ENCOUNTER 2022-02-23 05:57 | Day surgery (SDC) | payer MEDICARE, MEDICAID ==
[2022-02-16 10:45] LABS: BASOPHILS % (AUTO) 0.5 % (0-1); EOSINOPHILS # (AUTO) 0.2 X10'3 (0-0.9); EOSINOPHILS % (AUTO) 2.1 % (0-6); LYMPHOCYTES # (AUTO) 2.5 X10'3 (1.1-4.8); LYMPHOCYTES % (AUTO) 28.5 % (21-51); MEAN CORPUSCULAR HEMOGLOBIN 28.3 PG (27.0-31.0); MEAN CORPUSCULAR HGB CONC 31.9 g/dL (33.0-36.5); MEAN CORPUSCULAR VOLUME 88.9 FL (78-98); MEAN PLATELET VOLUME 7.8 FL (7.4-10.4); MONOCYTES # (AUTO) 0.9 X10'3 (0-0.9); NEUTROPHILS # (AUTO) 5.2 X10'3 (1.8-7.7); NEUTROPHILS % (AUTO) 58.9 % (42-75); PRE OP HEMATOCRIT 42.3 % (35.0-45.0); PRE OP HEMOGLOBIN 13.5 g/dL (12.0-16.0); PRE OP PLATELET COUNT 270 X10'3 (140-440); RED BLOOD COUNT 4.75 X10'6 (4.20-5.60); RED CELL DISTRIBUTION WIDTH 16.2 % (11.5-14.5)
[2022-02-16 10:48] LABS: ALBUMIN 3.4 G/DL (3.4-5.0); ALBUMIN/GLOBULIN RATIO 0.8 (1.1-1.5); ALKALINE PHOSPHATASE 136 IU/L (46-116); BLOOD UREA NITROGEN 13 MG/DL (7-18); BUN/CREATININE RATIO 9.3 (6.6-38.0); CALCIUM 9.8 MG/DL (8.5-10.1); CHLORIDE 105 MMOL/L (99-107); PRE OP ALT 27 U/L (30-65); PRE OP ANION GAP 10 (8-16); PRE OP AST 28 U/L (10-37); PRE OP BILIRUB, TOTAL 0.2 MG/DL (0.0-1.0); PRE OP GLUCOSE 90 MG/DL (70-104); PRE OP POTASSIUM 3.8 MMOL/L (3.4-5.1); PRE OP SODIUM 146 MMOL/L (135-145); TOTAL CARBON DIOXIDE 30.7 MMOL/L (24-32); TOTAL PROTEIN 7.5 G/DL (6.4-8.2); eGFR 37 ML/MIN
[2022-02-23] VITALS (12 sets, daily range): BP systolic 116–141; BP diastolic 54–67
[~2022-02-23] VITALS: Ht 170.2 cm; Wt 66.5 kg
[~2022-02-23 05:57] MED LIST changes: -ALBU2.5V12 NEB; -AMIT-106 PO; +AMIT25TA9 PO; +FERR-106 PO; -FERR-97 PO; -FLO0.4C PO; -HYDR-3972 PO; +HYDR-3973 PO; +LEVE500T PO; -LISI-234 PO; +MAGN400T56 PO; -METR500T4 PO; +MSC30T PO; +OSC500T PO; +OXYGEN; +POTA-206 PO; -TRAZ-218 PO; +albuterol 2.5 MG/3 ML nebule NEB ONE; +famotidine 20mg tablet PO ONE; +ringers solution, lacted 1,000 ML IV SCH
[2022-02-23] MEDS ORDERED: LIDOcaine 1% 30ml preserv. free vial ONE (06:40)
[2022-02-23] MEDS ORDERED: triamcinolone acetonide 40mg/ml inj ONE ×2 (06:40→06:42)
[2022-02-23] MEDS ORDERED: BUPIVAcaine/PF 2.5 mg/ml (0.25%) 30ml vial ONE (06:41)
[2022-02-23] MEDS ORDERED: cloNIDine hcl/PF 100mcg/ml inj ONE (07:10)
[2022-02-23] MEDS ORDERED: fentaNYL/PF 50MCG/1 ML 2ML syringe ONE (07:13)
[2022-02-23] MEDS ORDERED: midazolam 1 mg/ML 2ml injection ONE (07:52)
[2022-02-23] MEDS ORDERED: dexamethasone sod phosphate 4mg/ml inj. ONE (07:52)
[2022-02-23] MEDS ORDERED: propofol inj 20 ML IV ONE (07:52)
[2022-02-23] MEDS ORDERED: ondansetron/PF 4mg/2ml inj ONE (07:52)
[2022-02-23] MEDS ORDERED: ROPIVAcaine 0.5% (5mg/ml) 30ml vial ONE (07:52)
[2022-02-23] MEDS ORDERED: LIDOcaine 2% (20mg/ml) 5ml vial ONE (07:52)
--- NOTE | 2022-02-23 07:56 | NUR ---
Received from OR via [facility], accompanied by Anesthesiologist DR DE DIOS and report given by Anesthesiolgist. PT PREENTS WITH PIV 20G RIGHT HAND, PT HAS SLING WITH SON, SLING TO BE APPLIED BEFORE PT LEAVES. NS @ 100MLS/HR, VSS. Addendum: 02/23/22 at 0810 by Mihaela Francois RN, RN Amended: Links added.
[2022-02-23] MEDS ORDERED: proCHLORperazine 10 MG/2 ml inj IV PRN (08:00)
[2022-02-23] MEDS ORDERED: HYDROmorphone/PF 0.2 MG/ML SYRINGE IV PRN (08:00)
[2022-02-23] MEDS ORDERED: fentaNYL/PF 50MCG/1 ML 2ML syringe IV PRN ×2 (08:00)
[2022-02-23] MEDS ORDERED: ondansetron/PF 4mg/2ml inj IV PRN (08:00)
[2022-02-23] MEDS ORDERED: labetalol 20mg/4ml (5mg/ml) syringe IV PRN (08:00)
[2022-02-23] MEDS ORDERED: acetaminophen 1,000mg/100ml IV 100 ML IV PRN (08:00)
[2022-02-23] MEDS ORDERED: hydrALAZINE 20mg/ml inj. IV PRN (08:00)
[2022-02-23] MEDS ORDERED: ringers solution, lacted 1,000 ML IV SCH (08:00)
[2022-02-23] MEDS ORDERED: meperidine/PF 25mg/ml syringe IV PRN (08:00)
[2022-02-23] MEDS ORDERED: HYDROcodone/acetaminophen 10/325mg tab PO PRN (08:05)
--- NOTE | 2022-02-23 09:26 | NUR ---
ALL DISCHARGE CRITERIA HAS BEEN MET. VSS, PAIN AT A TOLERABLE LEVEL, VOIDING AND ABLE TO SAFELY AMBULATE AND TRANSFER SELF. IV TAKEN OUT WITHOUT ANY COMPLICATIONS. ALL DISCHARGE INSTRUCTIONS COVERED WITH PATIENT AND ALL QUESTIONS ANSWERED. PATIENT TAKEN OUT VIA WHEELCHAIR TO PERSONAL VEHICLE WHERE FAMILY/FRIEND DROVE PATIENT HOME. PT IS ON HOME 02 3L, PT HAS PERSONAL O2 TANK. Addendum: 02/23/22 at 0936 by Mihaela Francois RN, RN Amended: Links added.
== END 2022-02-23 09:26 | disposition home or self-care (01) ==
LOC: PAS 05:57
PROVIDERS: ATTEND Orthopaedic Surgery
DX: M75.02 Adhesive capsulitis of left shoulder (principal); F41.8 Other specified anxiety disorders; F32.9 Major depressive disorder, single episode, unspecified; I10 Essential (primary) hypertension; J43.9 Emphysema, unspecified; Z79.899 Other long term (current) drug therapy; G89.18 Other acute postprocedural pain; Z90.710 Acquired absence of both cervix and uterus; Z98.890 Other specified postprocedural states; I48.91 Unspecified atrial fibrillation; Z88.8 Allergy status to other drugs, medicaments and biological substances; Z86.19 Personal history of other infectious and parasitic diseases; G40.909 Epilepsy, unspecified, not intractable, without status epilepticus
CPT/HCPCS: 23700; 36415; 64415; 71046; 76942; 80053; 82948; 85025; 94640; J0735; J1100; J2250; J2405; J2704; J2795; J3010; J3301; J3490; J7120; Z7506; Z7512; A4618